=== PATIENT | female | born 2000 | race Caucasian/White ===

== ENCOUNTER 2024-10-24 09:03 | Outpatient (CLI) | payer OTHER, SELFPAY ==
[2024-10-24 13:59] LABS: Bacterial Vaginosis* Negative (Negative); Candida glab/krus NOT DETECTED (No Detected); Candida species NOT DETECTED (No Detected); Trichomonas vaginalis NOT DETECTED (No Detected)
[2024-10-24 14:28] LABS: Chlamydia DNA Amplified* NOT DETECTED (No Detected); GC DNA Amplified* NOT DETECTED (No Detected)
[2024-10-26 00:59] LABS: HPV Source Cervical; HPV, High Risk by TMA Not Detected
== END 2024-10-24 09:04 | disposition home or self-care (01) ==
PROVIDERS: Visit Provider Registered Nurse
DX: Z11.3 Encounter for screening for infections with a predominantly sexual mode of transmission (principal); Z12.4 Encounter for screening for malignant neoplasm of cervix; Z11.51 Encounter for screening for human papillomavirus (HPV)
CPT/HCPCS: 81513; 87481; 87491; 87591; 87624; 87625; 87661; 88141; 88142

== ENCOUNTER 2025-06-17 08:33 | Outpatient (CLI) | payer OTHER, SELFPAY | END 2025-06-17 08:34 | disposition home or self-care (01) | LOC: LKVREF 08:34 | PROVIDERS: Visit Provider Family Medicine | DX: Z13.6 Encounter for screening for cardiovascular disorders (principal) | CPT/HCPCS: 80061 ==